=== PATIENT | female | born 1960 | race Two or more races ===

== ENCOUNTER 2023-10-11 20:06 | Emergency (ER) | payer OTHER ==
[~2023-10-11] VITALS: Ht 147.3 cm; Wt 68.2 kg
[~2023-10-11 20:06] MED LIST: LEVO500T91 PO; PHEN-922 PO
[2023-10-11] MEDS ORDERED: HYDROcodone-ACET 10/325MG TAB PO ONE (21:15)
[2023-10-11] MEDS ORDERED: IBUP1TAB5 PO (22:32)
[2023-10-11] MEDS ORDERED: BACIOIN15 TOP (22:32)
[2023-10-11] MEDS ORDERED: ACE3T PO (22:32)
[2023-10-11 22:58] VITALS: BP 110/63; PULSE 85; RESP 20; TEMP 98.4; O2SAT 95
[2023-10-11] MEDS ORDERED: HYDROcodone-ACET 10/325MG TAB ONE (23:02)
== END 2023-10-11 23:23 | disposition home or self-care (01) ==
LOC: ER 20:06
DX: S40.012A Contusion of left shoulder, initial encounter (principal); S50.02XA Contusion of left elbow, initial encounter; S00.12XA Contusion of left eyelid and periocular area, initial encounter; E11.9 Type 2 diabetes mellitus without complications; Z79.899 Other long term (current) drug therapy; W01.0XXA Fall on same level from slipping, tripping and stumbling without subsequent striking against object, initial encounter; Y93.01 Activity, walking, marching and hiking; Y92.098 Other place in other non-institutional residence as the place of occurrence of the external cause; Y99.8 Other external cause status
CPT/HCPCS: 70450; 72125; 73030; 73080